=== PATIENT | male | born 1930 | race Caucasian/White ===

== ENCOUNTER 2019-12-20 08:44 | Emergency (ER) | payer OTHER ==
[~2019-12-20] VITALS: Ht 182.9 cm; Wt 89.8 kg
[~2019-12-20 08:44] MED LIST: LEVAQUIN750 MG PO; ZESTORETIC 20-1 EAC1
[2019-12-20] MEDS ORDERED: ZESTORETIC 20-1 EAC1 PO (08:57)
[2019-12-20] MEDS ORDERED: CEFDINIR300 MG PO (15:54)
[2019-12-20] MEDS ORDERED: CELECOXIB100 MG PO (15:54)
[2019-12-20] MEDS ORDERED: LASIX20 MG PO (15:54)
[2019-12-20] MEDS ORDERED: INTESTINEX680 M1 PO (15:54)
== END 2019-12-20 16:50 | disposition home or self-care (01) ==
LOC: ER 08:44
DX: N45.1 Epididymitis (principal); N39.0 Urinary tract infection, site not specified; R60.0 Localized edema; N50.811 Right testicular pain

== ENCOUNTER 2020-01-01 08:33 | Outpatient (CLI) | payer OTHER ==
[~2020-01-01 08:33] MED LIST changes: +CEFDINIR300 MG PO; +CELECOXIB100 MG PO; +INTESTINEX680 M1 PO; +LASIX20 MG PO; +ZESTORETIC 20-1 EAC1 PO
== END 2020-01-01 08:40 | disposition home or self-care (01) ==
LOC: LAB 08:33
DX: I10 Essential (primary) hypertension (principal); E78.01 Familial hypercholesterolemia

== ENCOUNTER 2020-01-01 09:02 | Outpatient (CLI) | payer OTHER | END 2020-01-01 09:08 | disposition home or self-care (01) | LOC: RAD 09:02 | DX: M25.561 Pain in right knee (principal); M25.562 Pain in left knee ==

== ENCOUNTER 2020-02-12 08:15 | Outpatient (CLI) | payer OTHER | END 2020-02-12 08:23 | disposition home or self-care (01) | LOC: SONOGRAMA 08:15 | DX: R18.8 Other ascites (principal) ==